=== PATIENT | male | born 1970 | race Caucasian/White ===

== ENCOUNTER 2017-06-24 15:15 | Emergency (ER) | payer MEDICAID ==
[2017-06-24 15:15] VITALS: BMI 21.4
[2017-06-24 15:20] VITALS: BP 118/76; PULSE 58; RESP 18; TEMP 97.5; O2SAT 96
[2017-06-24] MEDS ORDERED: Lidocaine 2% Inj (20ml) INFIL ONE (16:03)
[2017-06-24] MEDS ORDERED: Bacitracin 500 Units/gm Oint Foilpak UD TOP ONE (16:03)
--- NOTE | 2017-06-24 16:03 | C.PDOC ---
History Of Present Illness 46 yo male c/o right 2nd finger laceration just prior to arrival. Pt notes he was cutting a cucumber with a knife and cut his finger. Right hand dominant. No changes in sensation. Time Seen by Provider: 06/24/17 15:37 Chief Complaint (Nursing): Abnormal Skin Integrity History Per: Patient History/Exam Limitations: no limitations Onset/Duration Of Symptoms: Mins Current Symptoms Are (Timing): Still Present Past Medical History Vital Signs: Last Vital Signs Temp 97.5 F L 06/24/17 15:17 Pulse 58 L 06/24/17 15:17 Resp 18 06/24/17 15:17 BP 118/76 06/24/17 15:17 Pulse Ox 96 06/24/17 17:09 - Medical History PMH: Diabetes Denies: Hepatitis, HIV, HTN, Seizures, Sexually Transmitted Disease - [facility] DETOXIFICATION SERVICES FOR SUBSTANCE ABUSE TREATMENT (05/11/15) Family History: States: Unknown Family Hx - Social History Hx Alcohol Use: No Hx Substance Use: Yes (heroin) - Immunization History Hx Tetanus Toxoid Vaccination: No Hx Influenza Vaccination: No Hx Pneumococcal Vaccination: No Review Of Systems Constitutional: Negative for: Fever Neurological: Negative for: Weakness, Numbness Physical Exam - Physical Exam Appears: Well, Non-toxic, No Acute Distress Skin: Warm, Dry, Other ((+) 3 cm laceration to the right 2nd finger. ) Head: Atraumatic, Normacephalic Eye(s): bilateral: Normal Inspection, EOMI Nose: Normal Oral Mucosa: Moist Neck: Normal, Normal ROM, Supple Chest: Symmetrical Respiratory: No Accessory Muscle Use Back: Normal Inspection Extremity: Normal ROM, Capillary Refill (< 2 sec), No Swelling Pulses: Left Radial: Normal, Right Radial: Normal Neurological/Psych: Oriented x3, Normal Speech, Normal Motor, Normal Sensation ED Course And Treatment O2 Sat by Pulse Oximetry: 96 Progress Note: Discussed wound care and wound check in 2 days. Laceration - Laceration Repair R 2nd finger Wound Length (In cm): 3 Description Of Wound: Irregular Wound Cleansed With: Betadine, Sterile Saline Anesthesia: Lidocaine 1% Wound Examination: Irrigated With Saline, No FB With Wound Exploration, No Tendon Injury With Wound Exploration Wound Closure: Suture (3) Suture Technique And Material Used: Nylon (5-0) Wound Complexity: Simple Disposition - Disposition Disposition: HOME/ ROUTINE Disposition Time: 17:07 Condition: STABLE Additional Instructions: Keep area clean and dry. May wash gently with soap and water. Change dressing 1- 2 times daily. Return to ER if fever occurs, redness or swelling around wound, pus in the wound. Please follow up with your primary doctor, clinic, or urgent care for suture removal in 10 days. Instructions: Laceration Repair With [place] ([place]) Forms: [facility] (Turkish) - Clinical Impression Clinical Impression: Finger laceration
[2017-06-24] MEDS ORDERED: Lidocaine 2% Inj (20ml) ONE (16:16)
[2017-06-24] MEDS ORDERED: Bacitracin 500 Units/gm Oint Foilpak UD ONE (17:04)
== END 2017-06-24 17:17 | disposition home or self-care (01) ==
LOC: C.ER 15:15
DX: S61.210A Laceration without foreign body of right index finger without damage to nail, initial encounter (principal); W26.0XXA Contact with knife, initial encounter; Y93.G1 Activity, food preparation and clean up; Y92.89 Other specified places as the place of occurrence of the external cause